=== PATIENT | female | born 1970 ===

== ENCOUNTER → 2019-05-01 13:56 | Outpatient (CLI) | payer OTHER | END | disposition home or self-care (01) | LOC: LAB 13:56 | DX: J11.1 Influenza due to unidentified influenza virus with other respiratory manifestations (principal); R05 Cough ==

== ENCOUNTER 2022-07-07 06:18 | Day surgery (SDC) | payer OTHER ==
[~2022-07-07] VITALS: Ht 177.8 cm; Wt 102.1 kg
[~2022-07-07 06:18] MED LIST: ATACAND4 MG; DESVENLAFAXINE50 MG PO; FEMARA2.5 MG PO; HYDRODIURIL12.5 MG PO; IBRANCE75 MG PO; TRAMADOL HCL E100 M1 PO; XGEVA120 MG/1.7; ZOLADEX3.6 MG
[2022-07-07] MEDS ORDERED: PERCOCET 5-3251 EACH PO (15:48)
[2022-07-07] MEDS ORDERED: COLACE100 MG PO (15:48)
== END 2022-07-07 21:15 | disposition home or self-care (01) ==
LOC: CIR.AMB 06:18
PROVIDERS: ATTEND Student in an Organized Health Care Education/Training Program
DX: N80.209 Endometriosis of unspecified fallopian tube, unspecified depth (principal); Z40.02 Encounter for prophylactic removal of ovary(s); I10 Essential (primary) hypertension; Z88.6 Allergy status to analgesic agent; Z20.822 Contact with and (suspected) exposure to COVID-19